=== PATIENT | female | born 1965 | race African-American/Black ===

== ENCOUNTER 2018-10-08 20:55 | Inpatient (IN) | payer OTHER, SELFPAY ==
[2018-10-08] MEDS ORDERED: ATROVENT IH ONE (21:39)
[2018-10-08] MEDS ORDERED: PROVENTIL IH ONE (21:39)
[2018-10-08 21:42] LABS: Basophils # (Auto) 0.1 K/mm3 (0.0-0.1); Basophils % (Auto) 0.6 % (0.0-1.8); Eosinophils # (Auto) 0.2 K/mm3 (0.0-0.4); Eosinophils % (Auto) 1.6 % (0.0-4.3); Hematocrit 37.9 % (30.3-42.9); Lymphocytes # (Auto) 3.5 K/mm3 (1.2-5.4); Lymphocytes % (Auto) 33.3 % (13.4-35.0); Mean Corpuscular HGB Conc 34 % (30-34); Mean Corpuscular Volume 82 fl (79-97); Monocytes # (Auto) 0.6 K/mm3 (0.0-0.8); Monocytes % (Auto) 5.6 % (0.0-7.3); Platelet Count 252 K/mm3 (140-440); Red Blood Count 4.63 M/mm3 (3.65-5.03); Red Cell Distribution Width 13.5 % (13.2-15.2)
--- NOTE | 2018-10-08 21:44 | Emergency Department Report ---
HPI - General Chief Complaint: Dyspnea/Respdistress Time Seen by Provider: 10/08/18 20:59 - HPI HPI: Room 22 The patient is a 53-year-old female presenting with a chief complaint shortness of breath. The patient has had chest congestion for approximately 3 weeks. Today the patient developed dyspnea on exertion. Approximately 25 minutes ago the patient states while cleaning she developed increased shortness of breath. Patient states she has a productive cough but is uncertain of the color. Patient is to rhinorrhea. Patient denies history of fever. Patient was reportedly hypoxic to 70s/80s on room air Location: Lungs Duration: [See above] Quality: Congestion, shortness of breath Severity: [See above] Modifying factors: [see above] Context: [see above] Mode of transportation: [not driving] ED Past Medical Hx - Past Medical History Previous Medical History?: Yes Hx Hypertension: Yes Hx Diabetes: Yes Additional medical history: high cholesterol - Surgical History Past Surgical History?: No - Family History Family history: no significant - Social History Smoking Status: Former Smoker (none 35 years) Substance Use Type: None ED Review of Systems ROS: Stated complaint: JULY Other details as noted in HPI Constitutional: denies: fever Eyes: denies: eye pain ENT: congestion, other (rhinorrhea) Respiratory: cough, shortness of breath Cardiovascular: denies: chest pain Endocrine: no symptoms reported Gastrointestinal: denies: abdominal pain Genitourinary: denies: dysuria Musculoskeletal: denies: back pain Neurological: denies: headache Physical Exam - Physical Exam Vital Signs: Vital Signs 10/08/18 21:10 Pulse Rate 80 Respiratory 22 Rate Blood Pressure 158/55 O2 Sat by Pulse 100 Oximetry Physical Exam: GENERAL: The patient is well-developed well-nourished []. [] HEENT: Normocephalic. Atraumatic. Extraocular motions are intact. Patient has moist mucous membranes. NECK: Supple. Trachea midline CHEST/LUNGS: Diffuse rhonchi. There is no respiratory distress noted. HEART/CARDIOVASCULAR: Regular. There is no tachycardia. There is no gallop rub or murmur. ABDOMEN: Abdomen is soft, nontender. Patient has normal bowel sounds. There is no abdominal distention. SKIN: There is no rash. There is trace to 1+ bilateral lower extremity pitting edema. There is no diaphoresis. NEURO: The patient is awake, alert, and oriented. The patient is cooperative. The patient has normal speech MUSCULOSKELETAL: There is no evidence of acute injury. ED Course Vital Signs 10/08/18 21:10 Pulse Rate 80 Respiratory 22 Rate Blood Pressure 158/55 O2 Sat by Pulse 100 Oximetry ED Medical Decision Making - Lab Data Result diagrams: 10/08/18 21:25 10/08/18 21:25 Laboratory Tests 10/08/18 10/08/18 10/08/18 21:19 21:25 21:25 WBC 10.6 RBC 4.63 Hgb 13.0 Hct 37.9 MCV 82 MCH 28 MCHC 34 RDW 13.5 Plt Count 252 Lymph % (Auto) 33.3 [place] % (Auto) 5.6 Eos % (Auto) 1.6 Baso % (Auto) 0.6 Lymph # 3.5 [place] # 0.6 Eos # 0.2 Baso # 0.1 Seg Neutrophils % 58.9 Seg Neutrophils # 6.2 PT INR APTT Sodium 137 Potassium 3.7 Chloride 99.7 Carbon Dioxide 27 Anion Gap 14 BUN 11 Creatinine 0.5 L Estimated GFR > 60 BUN/Creatinine Ratio 22 Glucose 182 H Calcium 8.7 Total Creatine Kinase CK-MB (CK-2) CK-MB (CK-2) Rel Index Troponin T NT-Pro-B Natriuret Pep Influenza A (Rapid) Negative Influenza B (Rapid) Negative 10/08/18 10/08/18 21:25 21:55 WBC RBC Hgb Hct MCV MCH MCHC RDW Plt Count Lymph % (Auto) [place] % (Auto) Eos % (Auto) Baso % (Auto) Lymph # [place] # Eos # Baso # Seg Neutrophils % Seg Neutrophils # PT 11.7 L INR 0.81 L APTT 30.3 Sodium Potassium Chloride Carbon Dioxide Anion Gap BUN Creatinine Estimated GFR BUN/Creatinine Ratio Glucose Calcium Total Creatine Kinase 163 H CK-MB (CK-2) 5.1 H CK-MB (CK-2) Rel Index 3.1 Troponin T < 0.010 NT-Pro-B Natriuret Pep 265.9 Influenza A (Rapid) Influenza B (Rapid) - EKG Data -: EKG Interpreted by Wy EKG shows normal: sinus rhythm Rate: normal - EKG Data When compared to previous EKG there are: previous EKG unavailable Interpretation: nonspecific ST-T wave mariano (T-wave inversion in lead aVL, V2) - Radiology Data Radiology results: report reviewed (chest x-ray, CT chest), image reviewed (chest x-ray, CT chest) interpreted by me: Chest [id number] haziness right greater than left. No pneumothorax [address] [address] XRay Report Signed Patient: EMILIA BOOTH MR#: [id number] : 1965 Acct:[id number] Age/Sex: 53 / F ADM Date: 10/08/18 Loc: ED Attending Dr: Ordering Physician: ASHLYN PADILLA MD Date of Service: 10/08/18 Procedure(s): XR chest 1V ap Accession Number(s): [id number] cc: ASHLYN PADILLA MD Fluoro Time In Minutes: FINAL REPORT EXAM: XR CHEST 1V AP HISTORY: SOB TECHNIQUE: AP portable view of the chest. PRIORS: None. FINDINGS: The cardiomediastinal silhouette appears normal. There are diffuse bilateral airspace infiltrates greater on the right than the left. The bones and soft tissues are unremarkable. IMPRESSION: Diffuse bilateral airspace disease may be due to pneumonia or pulmonary edema. Transcribed By: [facility] Dictated By: JEROME LIGHT MD Electronically Authenticated By: JEROME LIGHT MD Signed Date/Time: 10/08/182248 DD/ 47 TD/TT: 10/08/182247 [address] [address] Cat Scan Report Signed Patient: EMILIA BOOTH MR#: [id number] : 1965 Acct:[id number] Age/Sex: 53 / F ADM Date: 10/08/18 Loc: ED Attending Dr: Ordering Physician: ASHLYN PADILLA MD Date of Service: 10/08/18 Procedure(s): CT angio chest Accession Number(s): [id number] cc: ASHLYN PADILLA MD FINAL REPORT EXAM: CT ANGIO CHEST HISTORY: shortness of breath, hypoxia TECHNIQUE: High-resolution helical axial images were obtained of the chest during intravenous administratio n of iodinated contrast. Images are reconstructed in the sagittal and coronal planes. PRIORS: Chest x-ray performed earlier on the same day FINDINGS: There is no evidence of pulmonary embolism, the pulmonary arteries opacify normally. The heart and thoracic aorta appear normal. There are diffuse bilateral airspace infiltrates. There is no pleural effusion. Images through the upper abdomen are unremarkable. The bones are unremarkable. IMPRESSION: 1. No evidence of pulmonary embolism. 2. Diffuse bilateral airspace infiltrates most consistent with pneumonia, less likely pulmonary edema. Other rare causes of diffuse airspace disease include alveolar hemorrhage or proteinosis Transcribed By: ML Dictated By: JEROME LIGHT MD Electronically Authenticated By: JEROME LIGHT MD Signed Date/Time: 10/08/182356 DD/ 54 TD/TT: 10/08/182354 - Differential Diagnosis pneumonia, CHF, pleural effusion Critical care attestation.: If time is entered above; I have spent that time in minutes in the direct care of this critically ill patient, excluding procedure time. ED Disposition Clinical Impression: Shortness of breath, Hypoxia, Lung disease Disposition: OP ADMIT IP TO THIS HOSP Is pt being admited?: Yes Does the pt Need Aspirin: Yes Condition: Fair Time of Disposition: 00:04 (hospitalist paged (Dr. Claire Martines))
[2018-10-08 21:54] LABS: BUN/Creatinine Ratio 22; Blood Urea Nitrogen 11 mg/dL (7-17); Calcium 8.7 mg/dL (8.4-10.2); Hemolysis Index 22
[2018-10-08 22:30] LABS: Creatine Kinase MB 5.1 ng/mL (0.0-4.0)
--- NOTE | 2018-10-08 22:49 | XRay Report ---
FINAL REPORT EXAM: XR CHEST 1V AP HISTORY: SOB TECHNIQUE: AP portable view of the chest. PRIORS: None. FINDINGS: The cardiomediastinal silhouette appears normal. There are diffuse bilateral airspace infiltrates gre ater on the right than the left. The bones and soft tissues are unremarkable. IMPRESSION: Diffuse bilateral airspace disease may be due to pneumonia or pulmonary edema.
[2018-10-08 22:51] LABS: INR 0.81 (0.87-1.13)
[2018-10-08 22:52] LABS: Partial Thromboplastin Time 30.3 Sec. (24.2-36.6)
--- NOTE | 2018-10-08 23:57 | Cat Scan Report ---
FINAL REPORT EXAM: CT ANGIO CHEST HISTORY: shortness of breath, hypoxia TECHNIQUE: High-resolution helical axial images were obtained of the chest during intravenous admini stration of iodinated contrast. Images are reconstructed in the sagittal and coronal planes. PRIORS: Chest x-ray performed earlier on the same day FINDINGS: There is no evidence of pulmonary embolism, the pulmonary arteries opacify normally. The heart and thoracic aorta appear normal. There are diffuse bilateral airspace infiltrates. There is no pleural effusion. Images through the upper abdomen are unremarkable. The bones are unremarkable. IMPRESSION: 1. No evidence of pulmonary embolism. 2. Diffuse bilateral airspace infiltrates most consistent with pneumonia, less likely pulmonary edema . Other rare causes of diffuse airspace disease include alveolar hemorrhage or proteinosis
[2018-10-09] MEDS ORDERED: ZOSYN/NS 4.5GM/100ML 4.5 GM/100 ML VIAL IV ONE (00:05)
[2018-10-09] MEDS ORDERED: ASPIRIN PO ONE (00:05)
[2018-10-09] MEDS ORDERED: ZOFRAN IV PRN (02:52)
[2018-10-09] MEDS ORDERED: D50W (25GM) Syringe IV PRN (02:52)
[2018-10-09] MEDS ORDERED: SODIUM CHLORIDE FLUSH SYRINGE 10 ML IV PRN (02:52)
[2018-10-09] MEDS ORDERED: TYLENOL PO PRN (02:52)
--- NOTE | 2018-10-09 02:52 | History and Physical Report ---
History of Present Illness Date of examination: 10/09/18 Date of admission: 10/09/18 00:33 History of present illness: 53-year-old woman with a history of hypertension, diabetes, hyperlipidemia comes emergency room complaining of shortness of breath, non-productive cough. Symptoms started today as she was working outside Review of systems Constitutional: no weight loss, chills, fever Ears, eyes, nose, mouth and throat: no nasal congestion, no nasal discharge, no sinus pressure, no vision change, no red eye. Neck: No neck pain or rigidity. Cardiovascular: no palpitations, chest pain Respiratory: + cough, shortness of breath Gastrointestinal: no hematochezia, abdominal pain Genitourinary : no frequency , no hematuria Musculoskeletal: no joint swelling or muscle ache Integumentary: no rash, no pruritis Neurological: no parathesias, no focal weakness Endocrine: no cold or heat intolerance, no polyuria or polydipsia Hematologic/Lymphatic: no easy bruising, no easy bleeding, no gland swelling Allergic/Immunologic: no urticaria, no angioedema. PAST MEDICAL HISTORY: hypertension, diabetes, hyperlipidemia PAST SURGICAL HISTORY: None SOCIAL HISTORY: Denies alcohol, drugs, tobacco FAMILY HISTORY: Hypertension Medications and Allergies Allergies Allergy/AdvReac Type Severity Reaction Status Date / Time No Known Allergies Allergy Unverified 10/08/18 20:58 Home Medications Medication Instructions Recorded Confirmed Last Taken Type Atorvastatin Calcium [Lipitor] 20 mg PO DAILY 10/09/18 10/09/18 10/08/18 History Losartan [Cozaar] 100 mg PO QDAY 10/09/18 10/09/18 10/08/18 History Metformin HCl 1,000 mg PO BID 10/09/18 10/09/18 10/08/18 History Metoprolol Tartrate 50 mg PO BID 10/09/18 10/09/18 10/08/18 History Active Meds: Active Medications Enoxaparin Sodium (Lovenox) 40 mg SUB-Q QDAY MARCIANO Exam - Physical Exam Narrative exam: General Apperance: The patient lying in bed, breathing comfortable HEENT: Normocephalic, atraumatic. Pupils equally round and reactive to light, EOMI, no sclericterus or JVD or thyromegaly or nodule. , no carotid bruit, mucous membranes moist, no exudate or erythema Heart: S1-S2, regular is rhythm Lungs: Crackles bilaterally, breathing comfortable Abdomen: Positive bowel sounds, soft, nontender, nondistended, no organomegaly Extremities: No edema cyanosis clubbing Skin: no rash, nodule, warm and dry Neuro: cranial nerves 2-12 intact, speech is fluent, motor/sensory intact - Constitutional Vitals: Temp Pulse Resp BP Pulse Ox 91 H 17 130/49 98 10/09/18 02:44 10/09/18 02:44 10/09/18 02:44 10/09/18 02:44 Results - Labs CBC & Chem 7: 10/09/18 03:46 10/09/18 03:46 Labs: Abnormal lab results 10/08/18 10/08/18 10/08/18 Range/Units 21:25 21:25 21:55 PT 11.7 L (12.2-14.9) Sec. INR 0.81 L (0.87-1.13) Creatinine 0.5 L (0.7-1.2) mg/dL Glucose 182 H (65-100) mg/dL Total Creatine Kinase 163 H (30-135) units/L CK-MB (CK-2) 5.1 H (0.0-4.0) ng/mL - Imaging and Cardiology EKG: report reviewed Chest x-ray: report reviewed Assessment and Plan Assessment Bilateral pneumonia, community-acquired hypertension, diabetes hyperlipidemia Plan Admit to medicine Start IV antibiotic, follow cultures Check fingersticks and initiate insulin sliding scale Continue appropriate outpatient medications DVT prophylaxis
[2018-10-09 04:05] LABS: Basophils % (Auto) 0.4 % (0.0-1.8); Eosinophils % (Auto) 0.3 % (0.0-4.3); Hematocrit 34.5 % (30.3-42.9); Hemoglobin 11.6 gm/dl (10.1-14.3); Lymphocytes # (Auto) 2.6 K/mm3 (1.2-5.4); Lymphocytes % (Auto) 21.7 % (13.4-35.0); Mean Corpuscular HGB Conc 34 % (30-34); Mean Corpuscular Volume 82 fl (79-97); Monocytes # (Auto) 0.6 K/mm3 (0.0-0.8); Monocytes % (Auto) 5.2 % (0.0-7.3); Platelet Count 250 K/mm3 (140-440); Red Blood Count 4.19 M/mm3 (3.65-5.03); Red Cell Distribution Width 13.6 % (13.2-15.2)
[2018-10-09 04:26] LABS: BUN/Creatinine Ratio 20; Blood Urea Nitrogen 10 mg/dL (7-17); Calcium 8.6 mg/dL (8.4-10.2); Hemolysis Index 6
[2018-10-09] MEDS: ZOSYN/NS 4.5GM/100ML 4.5 GM/100 ML VIAL IV SCH ×3 (06:25→22:39)
[2018-10-09] MEDS: HumaLOG SUB-Q SCH ×4 (09:47→22:40)
[2018-10-09] MEDS ORDERED: HumuLIN R ONE (09:47)
[2018-10-09] MEDS: DUONEB *Not for PRN Use IH SCH ×2 (12:06→19:28)
[2018-10-09] MEDS: SODIUM CHLORIDE FLUSH SYRINGE 10 ML IV SCH (12:28)
--- NOTE | 2018-10-09 14:02 | Progress Note ---
Assessment and Plan Assessment and plan: Bilateral pneumonia, community-acquired. Cont. Abx. F/u serial CXR. Hypertension. Cont BP meds. Diabetes Mellitus, II. Uncontrolled. Cont. tight glycemic control. SSRI, Accuchecks Hyperlipidemia. Cont Statin Total visit time 25 minutes, greater than 50% spent cordinating care and counseling History Interval history: No new issues Hospitalist Physical - Constitutional Vitals: Temp Pulse Resp BP Pulse Ox 98.0 F 97 H 20 113/76 94 10/09/18 11:29 10/09/18 12:21 10/09/18 12:21 10/09/18 11:29 10/09/18 12:06 General appearance: Present: no acute distress, well-nourished - EENT Eyes: Present: PERRL, EOM intact ENT: hearing intact, clear oral mucosa, dentition normal - Neck Neck: Present: supple, normal ROM - Respiratory Respiratory effort: normal Respiratory: bilateral: CTA - Cardiovascular Rhythm: regular Heart Sounds: Present: S1 & S2. Absent: gallop, rub - Extremities Extremities: no ischemia, No edema, Full ROM - Abdominal General gastrointestinal: soft, non-tender, non-distended, normal bowel sounds - Integumentary Integumentary: Present: clear, warm, dry - Neurologic Neurologic: CNII-XII intact, moves all extremities Results - Labs CBC & Chem 7: 10/09/18 03:46 10/09/18 03:46 Labs: Laboratory Last Values WBC 12.1 K/mm3 (4.5-11.0) H 10/09/18 03:46 RBC 4.19 M/mm3 (3.65-5.03) 10/09/18 03:46 Hgb 11.6 gm/dl (10.1-14.3) 10/09/18 03:46 Hct 34.5 % (30.3-42.9) 10/09/18 03:46 MCV 82 fl (79-97) 10/09/18 03:46 MCH 28 pg (28-32) 10/09/18 03:46 MCHC 34 % (30-34) 10/09/18 03:46 RDW 13.6 % (13.2-15.2) 10/09/18 03:46 Plt Count 250 K/mm3 (140-440) 10/09/18 03:46 Lymph % (Auto) 21.7 % (13.4-35.0) 10/09/18 03:46 [place] % (Auto) 5.2 % (0.0-7.3) 10/09/18 03:46 Eos % (Auto) 0.3 % (0.0-4.3) 10/09/18 03:46 Baso % (Auto) 0.4 % (0.0-1.8) 10/09/18 03:46 Lymph # 2.6 K/mm3 (1.2-5.4) 10/09/18 03:46 [place] # 0.6 K/mm3 (0.0-0.8) 10/09/18 03:46 Eos # 0.0 K/mm3 (0.0-0.4) 10/09/18 03:46 Baso # 0.0 K/mm3 (0.0-0.1) 10/09/18 03:46 Seg Neutrophils % 72.4 % (40.0-70.0) H 10/09/18 03:46 Seg Neutrophils # 8.7 K/mm3 (1.8-7.7) H 10/09/18 03:46 PT 11.7 Sec. (12.2-14.9) L 10/08/18 21:55 INR 0.81 (0.87-1.13) L 10/08/18 21:55 APTT 30.3 Sec. (24.2-36.6) 10/08/18 21:55 Sodium 140 mmol/L (137-145) 10/09/18 03:46 Potassium 3.7 mmol/L (3.6-5.0) 10/09/18 03:46 Chloride 100.0 mmol/L (98-107) 10/09/18 03:46 Carbon Dioxide 26 mmol/L (22-30) 10/09/18 03:46 Anion Gap 18 mmol/L 10/09/18 03:46 BUN 10 mg/dL (7-17) 10/09/18 03:46 Creatinine 0.5 mg/dL (0.7-1.2) L 10/09/18 03:46 Estimated GFR > 60 ml/min 10/09/18 03:46 BUN/Creatinine Ratio 20 % 10/09/18 03:46 Glucose 278 mg/dL (65-100) H 10/09/18 03:46 POC Glucose 292 (70-105) H 10/09/18 11:43 Calcium 8.6 mg/dL (8.4-10.2) 10/09/18 03:46 Total Creatine Kinase 163 units/L (30-135) H 10/08/18 21:25 CK-MB (CK-2) 5.1 ng/mL (0.0-4.0) H 10/08/18 21:25 CK-MB (CK-2) Rel Index 3.1 (0-4) 10/08/18 21: Troponin T < 0.010 ng/mL (0.00-0.029) 10/08/18: NT-Pro-B Natriuret Pep 265.9 pg/mL (0-900) 10/08/18 21:25 Influenza A (Rapid) Negative (Negative) 10/08/18 Influenza B (Rapid) Negative (Negative) 10/08/18
[2018-10-09] MEDS: LOVENOX SUB-Q SCH (14:18)
[2018-10-09] MEDS: LOPRESSOR PO SCH ×2 (14:18→22:39)
[2018-10-09] MEDS: GLUCOPHAGE PO SCH ×2 (14:19→17:34)
[2018-10-09] MEDS: COZAAR PO SCH (17:37)
[2018-10-10] MEDS: DUONEB *Not for PRN Use IH SCH ×6 (02:11→20:06)
[2018-10-10] MEDS: ZOSYN/NS 4.5GM/100ML 4.5 GM/100 ML VIAL IV SCH ×3 (05:33→21:27)
[2018-10-10] MEDS: SODIUM CHLORIDE FLUSH SYRINGE 10 ML IV SCH ×3 (08:16→21:27)
[2018-10-10] MEDS: GLUCOPHAGE PO SCH ×2 (08:55→16:56)
[2018-10-10] MEDS: HumaLOG SUB-Q SCH ×4 (08:57→22:06)
[2018-10-10] MEDS: COZAAR PO SCH (09:27)
[2018-10-10] MEDS: LOPRESSOR PO SCH ×2 (09:27→21:26)
[2018-10-10] MEDS: LOVENOX SUB-Q SCH (09:27)
--- NOTE | 2018-10-10 12:44 | Progress Note ---
Assessment and Plan Assessment and plan: Bilateral pneumonia, community-acquired. Cont. Abx. F/u serial CXR. Hypertension. Cont BP meds. Diabetes Mellitus, II. Uncontrolled. Cont. tight glycemic control. SSRI, Accuchecks Hyperlipidemia. Cont Statin History Interval history: No new issues Hospitalist Physical - Constitutional Vitals: Temp Pulse Resp BP Pulse Ox 98.2 F 90 16 153/76 94 10/10/18 06:00 10/10/18 09:00 10/10/18 09:00 10/10/18 06:00 10/10/18 08:49 General appearance: Present: no acute distress, well-nourished - EENT Eyes: Present: PERRL, EOM intact ENT: hearing intact, clear oral mucosa, dentition normal - Neck Neck: Present: supple, normal ROM - Respiratory Respiratory effort: normal Respiratory: bilateral: CTA - Cardiovascular Rhythm: regular Heart Sounds: Present: S1 & S2. Absent: gallop, rub - Extremities Extremities: no ischemia, No edema, Full ROM - Abdominal General gastrointestinal: soft, non-tender, non-distended, normal bowel sounds - Integumentary Integumentary: Present: clear, warm, dry - Neurologic Neurologic: CNII-XII intact, moves all extremities Results - Labs CBC & Chem 7: 10/09/18 03:46 10/09/18 03:46 Labs: Laboratory Last Values WBC 12.1 K/mm3 (4.5-11.0) H 10/09/18 03:46 RBC 4.19 M/mm3 (3.65-5.03) 10/09/18 03:46 Hgb 11.6 gm/dl (10.1-14.3) 10/09/18 03:46 Hct 34.5 % (30.3-42.9) 10/09/18 03:46 MCV 82 fl (79-97) 10/09/18 03:46 MCH 28 pg (28-32) 10/09/18 03:46 MCHC 34 % (30-34) 10/09/18 03:46 RDW 13.6 % (13.2-15.2) 10/09/18 03:46 Plt Count 250 K/mm3 (140-440) 10/09/18 03:46 Lymph % (Auto) 21.7 % (13.4-35.0) 10/09/18 03:46 [place] % (Auto) 5.2 % (0.0-7.3) 10/09/18 03:46 Eos % (Auto) 0.3 % (0.0-4.3) 10/09/18 03:46 Baso % (Auto) 0.4 % (0.0-1.8) 10/09/18 03:46 Lymph # 2.6 K/mm3 (1.2-5.4) 10/09/18 03:46 [place] # 0.6 K/mm3 (0.0-0.8) 10/09/18 03:46 Eos # 0.0 K/mm3 (0.0-0.4) 10/09/18 03:46 Baso # 0.0 K/mm3 (0.0-0.1) 10/09/18 03:46 Seg Neutrophils % 72.4 % (40.0-70.0) H 10/09/18 03:46 Seg Neutrophils # 8.7 K/mm3 (1.8-7.7) H 10/09/18 03:46 PT 11.7 Sec. (12.2-14.9) L 10/08/18 21:55 INR 0.81 (0.87-1.13) L 10/08/18 21:55 APTT 30.3 Sec. (24.2-36.6) 10/08/18 21:55 Sodium 140 mmol/L (137-145) 10/09/18 03:46 Potassium 3.7 mmol/L (3.6-5.0) 10/09/18 03:46 Chloride 100.0 mmol/L (98-107) 10/09/18 03:46 Carbon Dioxide 26 mmol/L (22-30) 10/09/18 03:46 Anion Gap 18 mmol/L 10/09/18 03:46 BUN 10 mg/dL (7-17) 10/09/18 03:46 Creatinine 0.5 mg/dL (0.7-1.2) L 10/09/18 03:46 Estimated GFR > 60 ml/min 10/09/18 03:46 BUN/Creatinine Ratio 20 % 10/09/18 03:46 Glucose 278 mg/dL (65-100) H 10/09/18 03:46 POC Glucose 192 (70-105) H 10/10/18 07:33 Calcium 8.6 mg/dL (8.4-10.2) 10/09/18 03:46 Total Creatine Kinase 163 units/L (30-135) H 10/08/18 21:25 CK-MB (CK-2) 5.1 ng/mL (0.0-4.0) H 10/08/18 21: CK-MB (CK-2) Rel Index 3.1 (0-4) 10/08/18 21: Troponin T < 0.010 ng/mL (0.00-0.029) 10/08/18: NT-Pro-B Natriuret Pep 265.9 pg/mL (0-900) 10/08/18 21: Influenza A (Rapid) Negative (Negative) 10/08/18 Influenza B (Rapid) Negative (Negative) 10/08/18
[2018-10-10] MEDS ORDERED: LANTUS SUB-Q SCH (22:00)
[2018-10-11] MEDS: DUONEB *Not for PRN Use IH SCH ×3 (02:16→13:10)
[2018-10-11] MEDS: ZOSYN/NS 4.5GM/100ML 4.5 GM/100 ML VIAL IV SCH (05:56)
[2018-10-11 07:56] LABS: Basophils % (Auto) 0.4 % (0.0-1.8); Eosinophils # (Auto) 0.2 K/mm3 (0.0-0.4); Eosinophils % (Auto) 1.9 % (0.0-4.3); Hematocrit 34.8 % (30.3-42.9); Hemoglobin 11.6 gm/dl (10.1-14.3); Lymphocytes # (Auto) 2.9 K/mm3 (1.2-5.4); Lymphocytes % (Auto) 29.9 % (13.4-35.0); Mean Corpuscular HGB Conc 33 % (30-34); Mean Corpuscular Volume 83 fl (79-97); Monocytes # (Auto) 0.5 K/mm3 (0.0-0.8); Monocytes % (Auto) 5.4 % (0.0-7.3); Platelet Count 264 K/mm3 (140-440); Red Blood Count 4.21 M/mm3 (3.65-5.03)
[2018-10-11 08:09] LABS: BUN/Creatinine Ratio 18; Blood Urea Nitrogen 9 mg/dL (7-17); Calcium 8.5 mg/dL (8.4-10.2); Hemolysis Index 15
[2018-10-11] MEDS: HumaLOG SUB-Q SCH (08:45)
[2018-10-11] MEDS: GLUCOPHAGE PO SCH (09:25)
[2018-10-11 09:29] VITALS: BP 159/75
[2018-10-11] MEDS: LOPRESSOR PO SCH (09:29)
[2018-10-11] MEDS: COZAAR PO SCH (09:29)
[2018-10-11] MEDS: LOVENOX SUB-Q SCH (09:30)
--- NOTE | 2018-10-11 10:07 | Discharge Summary ---
Providers - Providers Date of Admission: 10/09/18 00:33 Date of discharge: 10/11/18 Attending physician: SAHARA SOLIMAN Primary care physician: YADI MCCONNELL Hospitalization Reason for admission: pna Condition: Fair Hospital course: 53-year-old woman with a history of hypertension, diabetes, hyperlipidemia comes emergency room complaining of shortness of breath, non-productive cough. The patient was admitted with diagnosis of bilateral pneumonia. Patient received IV antibiotics with significant improvement. Blood cultures found be negative. Respiratory status remained at baseline with no signs of respiratory failure. Influenza A and B are negative. White count within normal range and patient is afebrile. Patient is felt to have received maximal hospital benefit and this will be discharged home. Dedicated discharge time 32 minutes. Disposition: [place]- TO HOME OR SELFCARE Time spent for discharge: 32 - Discharge Diagnoses (1) Bilateral pneumonia Status: Acute Core Measure Documentation - Palliative Care Palliative Care/ Comfort Measures: Not Applicable - Core Measures Any of the following diagnoses?: none Exam - Constitutional Vitals: Temp Pulse Resp BP Pulse Ox 98.1 F 85 18 159/75 95 10/11/18 05:21 10/11/18 09:29 10/11/18 07:57 10/11/18 09:29 10/11/18 09:22 General appearance: Present: no acute distress, well-nourished - EENT Eyes: Present: PERRL ENT: hearing intact, clear oral mucosa - Neck Neck: Present: supple, normal ROM - Respiratory Respiratory effort: normal Respiratory: bilateral: CTA - Cardiovascular Heart Sounds: Present: S1 & S2. Absent: rub, click - Extremities Extremities: pulses symmetrical, No edema Peripheral Pulses: within normal limits - Abdominal General gastrointestinal: Present: soft, non-tender, non-distended, normal bowel sounds Female genitourinary: Present: normal - Integumentary Integumentary: Present: clear, warm, dry - Musculoskeletal Musculoskeletal: gait normal, strength equal bilaterally - Psychiatric Psychiatric: appropriate mood/affect, intact judgment & insight - Neurologic Neurologic: CNII-XII intact, moves all extremities Plan Activity: no restrictions Weight Bearing Status: Full Weight Bearing Diet: diabetic Follow up with: YADI MCCONNELL MD [Primary Care Provider] - 3-5 Days Prescriptions: Amoxicillin/Potassium Clav [Augmentin 875-125 Tablet] 1 each PO BID #20 tablet Atorvastatin Calcium [Lipitor] 20 mg PO DAILY #30 tablet Losartan [Cozaar] 100 mg PO BID #60 tablet Metformin HCl 1,000 mg PO BID #60 tablet Metoprolol Tartrate 50 mg PO BID #60 tablet
== END 2018-10-11 13:45 | disposition home or self-care (01) | DRG 195 ==
LOC: ED 20:55 → 3A 10-09 00:33
PROVIDERS: ADMIT Internal Medicine; ATTEND Hospitalist
DX: J18.9 Pneumonia, unspecified organism (principal); E11.9 Type 2 diabetes mellitus without complications; I10 Essential (primary) hypertension; E78.5 Hyperlipidemia, unspecified; E78.00 Pure hypercholesterolemia, unspecified; Z87.891 Personal history of nicotine dependence; Z82.49 Family history of ischemic heart disease and other diseases of the circulatory system; Z79.84 Long term (current) use of oral hypoglycemic drugs; Z79.899 Other long term (current) drug therapy
CPT/HCPCS: 36415; 71045; 71275; 80048; 82550; 82553; 82962; 83880; 84484; 85025; 85610; 85730; 87040; 87400; 93005; 93010; 94640; G0378; A9270-GY; J1650; J1815; J2543; Q9967